=== PATIENT | male | born 1965 | race Caucasian/White ===

== ENCOUNTER → 2021-11-04 | Outpatient (CLI) | payer BC ==
[~2021-11-04] MED LIST: LEXISCAN IV ONE
--- NOTE | 2021-11-04 22:23 | STRESS ---
DATE OF SERVICE: 11/04/2021 DICTATOR NAME: REJI SHAANStephane CARDIAC STRESS TEST INDICATION: Chest pain. FINDINGS: Baseline EKG shows normal sinus rhythm with poor R-wave progression and a left anterior fascicular block. Stress EKG shows normal sinus rhythm, unchanged from baseline. At the end of recovery, EKG shows normal sinus rhythm, unchanged from baseline. Baseline heart rate is 75 beats per minute and antoni to 85 beats per minute during stress. At the end of recovery, the heart rate was 90 beats per minute. Baseline blood pressure is 158/94 and remained the same during stress. At the end of recovery, the blood pressure was 143/78. Blood pressure and heart rate were appropriate for stress. There were no significant symptoms noted during stress. There were no arrhythmias noted during stress. EKG portion of stress test is negative for myocardial ischemia. Nuclear images were obtained with a rest dose of 11 mCi technetium-99 sestamibi, and a stress dose of 31.9 mCi technetium 99 sestamibi. Nuclear images reveal a moderate-sized area of periinfarct ischemia involving the inferior wall. Left ventricular ejection fraction is 68%. EDV 73 mL, ESV is 24 mL. The left ventricle is normal in size. Gated motion images showed normal wall motion across all segments of the left ventricle. TID is 1.5. There is no evidence of diaphragmatic attenuation artifact. IMPRESSION: 1. There is a moderate-sized area of periinfarct ischemia involving the inferior wall. 2. This is an abnormal study. Recommend left heart catheterization. Olivia BOCANEGRA D.O. DR: CHANDRA TID: [id number] RECEIPT: [id number]
--- NOTE | 2021-11-04 22:37 | PCM.ECHO ---
APPROVED REPORT EXAM: Comprehensive 2D, Doppler, and color-flow Echocardiogram. Patient Location: OUT-PATIENT Indications Abnormal ECG Hypertension/HDD 2D Dimensions LVOT Diameter 2.38 (1.8-2.4cm) LVEF(%) 59.24 (>50%) M-Mode Dimensions RVDd 2.10 (2.1-3.2cm) Left Atrium(MM) 5.15 (2.5-4.0cm) IVSd 1.25 (0.7-1.1cm) Aortic Root 3.15 (2.2-3.7cm) LVDd 4.80 (4.0-5.6cm) Aortic Cusp Exc 2.15 (1.5-2.0cm) PWd 0.80 (0.7-1.1cm) MV EPSS 0.48 (<0.5cm) IVSs 1.85 cm FS (%) 54.60 % LVDs 2.15 (2.0-3.8cm) ESV(Teich) 16.14 ml PWs 2.15 cm LVEF(%) 85.27 (>50%) Volumes Biplane 2D LV Volumes Biplane 2D LA Volumes LVEDv A4C 116.25 mL LA ESV Index LVESv A4C 47.39 mL Aortic Valve AoV Peak Iftikhar. 1.30 m/s AoV VTI 24.50 cm AO Peak GR. 6.80 mmHg AO Mean GR. 3.50 mmHg LVOT VTI 24.33 cm LVOT Peak Iftikhar. 1.01 m/s SUNG(VTI)/BSA 4.40 cm2/m2 SUNG (VTI) 4.40 cm2 Mitral Valve MV E Velocity 0.80m/s MR Peak Gr. 14.90mmHg MV A Velocity 0.80m/s TDI Lateral E' P. V 0.09m/s Medial E' P. V 0.09m/s Pulmonary Valve PV Peak Velocity 0.90m/s PV Peak Grad. 3.30mmHg RVOT VTI 18.75cm Tricuspid Valve TR P. Velocity 1.60m/s RAP ESTIMATE 10.00mmHg TR Peak Gr. 10.49mmHg RVSP 20.49mmHg LEFT VENTRICLE The left ventricle is normal size. The left ventricular systolic function is normal. The left ventricular ejection fraction is within the normal range. There is normal left ventricular wall thickness. There is normal LV segmental wall motion. There is no ventricular septal defect visualized. No left ventricle thrombus noted on this study. LVEF is 55-60%. RIGHT VENTRICLE The right ventricle is normal size. The right ventricular systolic function is normal. There is normal right ventricular wall thickness. ATRIA The left atrium size is normal. The right atrium size is normal. The interatrial septum is intact with no evidence for an atrial septal defect. AORTIC VALVE The aortic valve is normal in structure. There is no aortic valvular stenosis. No aortic regurgitation is present. There is no aortic valvular vegetation. MITRAL VALVE The mitral valve is normal in structure. There is no mitral valve stenosis. Mild mitral regurgitation. There is no evidence of mitral valve vegetations. TRICUSPID VALVE The tricuspid valve is normal in structure. There is no tricuspid valve stenosis. Mild tricuspid regurgitation. There is no tricuspid valve vegetations. PULMONIC VALVE Pulmonic valve is not well visualized. There is no pulmonic valvular stenosis. There is no pulmonic valvular regurgitation. GREAT VESSELS The aortic root is normal in size. Pulmonary artery is not well visualized. Aortic arch is not well visualized. The IVC is normal in size and collapses >50% with inspiration. PERICARDIUM There is no pericardial effusion. There is no pleural effusion. Other Information Study Quality: Fair <Conclusion> The left ventricular systolic function is normal. LVEF is 55-60%. Mild mitral regurgitation. Mild tricuspid regurgitation. Electronically signed by : REJI NEGRETE. 11/04/2021 22:37:15
== END | disposition home or self-care (01) ==
LOC: RAD 11:23
PROVIDERS: ATTEND Internal Medicine Interventional Cardiology
DX: I08.1 Rheumatic disorders of both mitral and tricuspid valves (principal); I10 Essential (primary) hypertension
CPT/HCPCS: 78452; 93017; 93306; A9500; J2785